=== PATIENT | male | born 1955 | race African-American/Black ===

== ENCOUNTER 2022-01-08 06:40 | Emergency (ER) | payer MEDICARE, SELFPAY ==
[2022-01-08] VITALS (14 sets, daily range): BP systolic 170–186; BP diastolic 77–89; PULSE 66–88; RESP 16–23; TEMP 36.4; O2SAT 93–100
--- NOTE | ~2022-01-08 | XR_ITS ---
EXAMINATION: XR chest 1V portable DATE: 01/08/2022 07:29 INDICATION: Cough TECHNIQUE: frontal view of the chest was obtained. COMPARISON: None FINDINGS: The lungs are clear with no focal airspace opacities, pulmonary edema, pleural effusion or pneumothor ax. The cardiomediastinal silhouette is normal. Distal right clavicle resection. IMPRESSION: 1. No acute cardiopulmonary disease. Reviewed, dictated and finalized at location A.
--- NOTE | 2022-01-08 06:46 | ECG_ITS ---
Measurements Intervals [place] Rate: 73 P: 62 ID: [id number] QRS: -27 QRSD: 91 T: 66 QT: 406 QTc: 448 Interpretive Statements SINUS RHYTHM VOLTAGE CRITERIA FOR LVH CANNOT RULE OUT SEPTAL INFARCT, AGE INDETERMINATE ABNORMAL ECG NO PREVIOUS ECG AVAILABLE FOR COMPARISON Electronically Signed On 01-08-2022 7:35:39 CDT by Gil Polanco D.O.
--- NOTE | 2022-01-08 07:13 | ED.SOB ---
HPI - SOB/Dyspnea General Chief Complaint: Shortness of Breath/Dyspnea Stated Complaint: SOB Time Seen by Provider: 01/08/22 07:01 Source: RN notes reviewed History of Present Illness HPI Narrative: Patient presents emergency department from home for shortness of breath. Patient symptoms began yesterday. States he has been having a mild feeling of shortness of breath states has been associate with cough this been nonproductive. He denies any fevers or chills rhinorrhea sore throat chest pain abdominal pain nausea vomiting or any other symptoms. Patient states he is an every day smoker denies a history of known COPD Related Data Home Medications Medication Instructions Recorded Confirmed amlodipine 10 mg tablet mg 01/08/22 ergocalciferol (vitamin D2) 1,250 01/08/22 mcg (50,000 unit) capsule olmesartan 40 tablet 01/08/22 mg-hydrochlorothiazide 25 mg tablet rosuvastatin 20 mg tablet mg 01/08/22 Allergies Allergy/AdvReac Type Severity Reaction Status Date / Time lisinopril Allergy Unknown Hives Verified 01/08/22 06:46 Review of Systems Review of Systems: Gen.: Denies fevers or chills ENT: Denies congestion Respiratory: See HPI CV: Denies chest pain or palpitations GI: Denies abdominal pain nausea, emesis or diarrhea Musculoskeletal: Denies back pain or muscle pain Neuro: Denies numbness, tingling, weakness or focal weakness Skin: Denies rash Except as documented, all other systems reviewed and negative [facility] Past Medical History Medical History (Updated 01/08/22 @ 09:50 by Néstor Borjas DO) Patient denies significant medical history Social History Social History Smoking status: Current every day smoker Second hand tobacco smoke exposure: Yes Alcohol intake: current Exam Narrative: APPEARANCE: No acute distress, nontoxic, resting in bed EYES: EOMI HEENT: Normocephalic, atraumatic, OMM RESPIRATORY: No respiratory distress mild wheezing in upper lung [place] no rhonchi rales CARDIOVASCULAR: Regular rate and rhythm without murmurs rubs or gallops. ABDOMINAL: Soft, nontender, nondistended, no rebound or guarding MUSCULOSKELETAl: Moves all extremities. No clubbing, cyanosis or edema. NEURO: Awake and alert. Following commands, speech normal, no focal deficits SKIN:: Warm, dry. No rashes lesions or abrasions PSYCHIATRIC: Normal affect/mood, Course Course Emergency Course: Patient states he is feeling much better following breathing treatment. Repeat lung exam clear to auscultation bilaterally Discussed with patient results of workup and diagnosis. Discussed need for follow-up with primary care, proper use of medication, and reasons to return to the emergency department. Patient understands and agrees to current treatment plan Vital Signs Vital signs: Vital Signs Temperature 97.6 F 01/08/22 06:42 Pulse Rate 82 01/08/22 06:42 Respiratory Rate 20 01/08/22 06:42 Blood Pressure 170/77 H 01/08/22 06:42 Pulse Oximetry 93 01/08/22 06:42 Oxygen Delivery Room Air 01/08/22 06:42 Temperature 97.6 F 01/08/22 06:42 Pulse Rate 66 01/08/22 09:29 Respiratory Rate 18 01/08/22 09:29 Blood Pressure 176/89 H 01/08/22 09:29 Pulse Oximetry 97 01/08/22 09:29 Oxygen Delivery Room Air 01/08/22 08:40 MDM - SOB/Dyspnea Lab Data Result diagrams: 01/08/22 07:08 01/08/22 07:08 Labs: Lab Results 01/08/22 01/08/22 01/08/22 Range/Units 07:08 07:08 07:08 WBC 10.0 (4.5-10.0) K/mm3 RBC 4.92 (4.6-6.20) M/mm3 Hgb 13.8 L (14.0-18.0) g/dL Hct 42.0 (42.0-52.0) % MCV 85.4 (80-100) fl MCH 28.0 (26-34) pg MCHC 32.9 (32-36) g/dl RDW 14.0 (11.5-14.5) % Plt Count 381 H (150-375) k/mm3 MPV 8.7 (7.4-10.4) fl Immature Gran % (Auto) 0.3 (0-0.5) % Neut % (Auto) 57.8 (45.5-73.1) % Lymph % (Auto) 26.1 (18.3-44.2) % [place] % (Aut
[2022-01-08 07:20] LABS: Basophils Absolute Auto 0.1 K/mm3 (0.0-0.1); Basophils Percent Auto 0.9 % (0.2-1.2); Eosinophils Absolute Auto 0.7 K/mm3 (0-0.3); Eosinophils Percent Auto 7.3 % (0-4.4); Hemoglobin 13.8 g/dL (14.0-18.0); Immature Granulocyte Absolute 0.03 K/mm3 (0.00-0.031); Immature Granulocyte Percent A 0.3 % (0-0.5); Lymphocytes Percent Auto 26.1 % (18.3-44.2); Mean Corpuscular HGB Conc 32.9 g/dl (32-36); Mean Corpuscular Volume 85.4 fl (80-100); Mean Platelet Volume 8.7 fl (7.4-10.4); Monocytes Absolute Auto 0.8 K/mm3 (0.1-0.6); Monocytes Percent Auto 7.6 % (2.6-8.5); Neutrophils Absolute Auto 5.8 K/mm3 (1.3-6.7); Neutrophils Percent Auto 57.8 % (45.5-73.1); Platelet Count Result 381 k/mm3 (150-375); Red Blood Count 4.92 M/mm3 (4.6-6.20)
[2022-01-08 07:28] LABS: Alanine Aminotransferase 15 U/L (6-50); Albumin Level 4.4 g/dL (3.5-5.1); Alkaline Phosphatase 112 U/L (38-126); Anion Gap 13 mmol/L (8-16); Aspartate Amino Transferase 26 U/L (17-59); Bilirubin,Total 0.3 mg/dL (0.2-1.3); Blood Urea Nitrogen 12 mg/dL (9-20); Calcium 8.7 mg/dL (8.4-10.2); Carbon Dioxide 25 mmol/L (22-30); Chloride 103 mmol/L (98-107); Estimated CRCL calculation 72 ml/min; Estimated Glomerular Filt Rate > 60; Glucose 128 mg/dL (65-110); Potassium 4.2 mmol/L (3.4-5.0); Sodium 141 mmol/L (137-145)
[2022-01-08] MEDS: ALBUTEROL SULFATE NEB 2.5 MG/3 ML INH 5 MG INHALATION (07:41)
[2022-01-08] MEDS: IPRATROPIUM BR 0.02% INH SOLN 0.5 MG/2.5 ML VIAL INHALATION (07:41)
[2022-01-08 07:56] LABS: NT Pro B Type Natriuretic Pept 125 pg/mL (5-100); Troponin I < 0.012 ng/mL (0.000-0.034)
[2022-01-08 08:13] LABS: Prothrombin Time 13.1 Seconds (11.1-14.7)
[2022-01-08 08:23] LABS: SARS-CoV-2 RNA PCR Negative
[2022-01-08 08:27] LABS: D Dimer 0.37 ug/mL (<0.48)
[2022-01-08] MEDS: predniSONE 20 MG TABLET 60 MG PO (09:44)
== END 2022-01-08 10:10 | disposition home or self-care (01) ==
PROVIDERS: Emergency Medicine; Emergency Provider Emergency Medicine
DX: J44.1 Chronic obstructive pulmonary disease with (acute) exacerbation (principal); Z20.822 Contact with and (suspected) exposure to COVID-19; F17.210 Nicotine dependence, cigarettes, uncomplicated
CPT/HCPCS: 36415; 71045; 80053; 83880; 84484; 85025; 85380; 85610; 85730; 93005; 94640; 99284; C9803; J7512; U0003; U0005

== ENCOUNTER 2022-08-14 07:55 | Emergency (ER) | payer MEDICARE, SELFPAY ==
[2022-08-14 08:01] VITALS: BP 144/76; PULSE 81; RESP 16; TEMP 36.7; O2SAT 97
--- NOTE | 2022-08-14 10:22 | ED.GENADULT ---
HPI - General Adult General Chief complaint: Urogenital-Male Stated complaint: fever/dark urine Time Seen by Provider: 08/14/22 09:45 History of Present Illness HPI narrative: 66-year-old male presented the emergency department for evaluation of a suspected urinary tract infection. Patient states he has had some low-grade fever at home intermittent since Monday. Patient states he has had some dark urine. Patient denies any pain with urination. Patient does report a prior history of urinary tract infection thought to be secondary to not drinking enough water. Patient denies any prior history of urinary retention. Related Data Home Medications Medication Instructions Recorded Confirmed amlodipine 10 mg tablet mg 01/08/22 ergocalciferol (vitamin D2) 1,250 01/08/22 mcg (50,000 unit) capsule olmesartan 40 tablet 01/08/22 mg-hydrochlorothiazide 25 mg tablet rosuvastatin 20 mg tablet mg 01/08/22 Allergies Allergy/AdvReac Type Severity Reaction Status Date / Time lisinopril Allergy Unknown Hives Verified 01/08/22 06:46 Review of Systems Review of Systems: All systems reviewed & are unremarkable except as noted in HPI and below PMFSH Past Medical History Medical History (Updated 08/14/22 @ 12:18 by Blaze Mathur MD) Patient denies significant medical history Social History Social History Smoking status: Current every day smoker Second hand tobacco smoke exposure: Yes Alcohol intake: current Exam Narrative: APPEARANCE: Well appearing, no pain, no distress, well-nourished. HEAD: normocephalic, atraumatic. EYES: PERRLA/EOMI, conjunctivae clear. NOSE: Normal no drainage NECK: Supple. No adenopathy, no masses. RESPIRATORY: Airway patent, respirations nonlabored. Clear to auscultation bilaterally, no rales, rhonchi, wheezing. CARDIOVASCULAR: Regular rate and rhythm without murmurs rubs or gallops. ABDOMINAL: Soft, nontender, nondistended, normal bowel sounds MUSCULOSKELETAL: Moves all extremities. Strength/ROM intact, No edema, No calf tenderness. NEURO: Alert. Cranial nerves II through XII intact. Grossly intact SKIN: Warm, dry. Normal Color Course Course Emergency Course: 66-year-old male with history of urinary tract infection presenting for evaluation of dark urine and subjective fever. Patient was afebrile with no significant leukocytosis. Patient's CMP is similar to his baseline. UA does have leukoesterase and white blood cells. Urine culture was ordered and patient was started on Keflex. COVID and influenza were negative. Bedside bladder scan showed no retained urine. Patient and family were updated on the results of the work-up and plan for treatment. Patient was encouraged of close follow-up with his primary care physician. All questions and concerns were addressed. Vital Signs Vital signs: Vital Signs Temperature 98.1 F 08/14/22 08:01 Pulse Rate 81 08/14/22 08:01 Respiratory Rate 16 08/14/22 08:01 Blood Pressure 144/76 H 08/14/22 08:01 Pulse Oximetry 97 08/14/22 08:01 Oxygen Delivery Room Air 08/14/22 08:01 Temperature 98.1 F 08/14/22 08:01 Pulse Rate 81 08/14/22 08:01 Respiratory Rate 16 08/14/22 08:01 Blood Pressure 144/76 H 08/14/22 08:01 Pulse Oximetry 97 08/14/22 08:01 Oxygen Delivery Room Air 08/14/22 08:01 Medical Decision Making Vital Signs Vital Signs: Vital Signs Temperature 98.1 F 08/14/22 08:01 Pulse Rate 81 08/14/22 08:01 Respiratory Rate 16 08/14/22 08:01 Blood Pressure 144/76 H 08/14/22 08:01 Pulse Oximetry 97 08/14/22 08:01 Oxygen Delivery Room Air 08/14/22 08:01 Temperature 98.1 F 08/14/22 08:01 Pulse Rate 81 08/14/22 08:01 Respiratory Rate 16 08/14/22 08:01 Blood Pressure 144/76 H 08/14/22 08:01 Pulse Oximetry 97 08/14/22 08:01 Oxygen Delivery Room Air 08/14/22 08:01 Lab Data Lab results reviewed: Andrei
[2022-08-14 10:28] LABS: Basophils Absolute Auto 0.1 K/mm3 (0.0-0.1); Basophils Percent Auto 0.8 % (0.2-1.2); Eosinophils Absolute Auto 0.2 K/mm3 (0-0.3); Eosinophils Percent Auto 2.3 % (0-4.4); Hematocrit 46.5 % (42.0-52.0); Hemoglobin 14.7 g/dL (14.0-18.0); Immature Granulocyte Absolute 0.06 K/mm3 (0.00-0.031); Immature Granulocyte Percent A 0.6 % (0-0.5); Lymphocytes Absolute Auto 2.57 K/mm3 (0.9-3.2); Lymphocytes Percent Auto 26.2 % (18.3-44.2); Mean Corpuscular HGB Conc 31.6 g/dl (32-36); Mean Corpuscular Hemoglobin 27.6 pg (26-34); Mean Corpuscular Volume 87.2 fl (80-100); Mean Platelet Volume 8.4 fl (7.4-10.4); Monocytes Absolute Auto 0.5 K/mm3 (0.1-0.6); Monocytes Percent Auto 5.4 % (2.6-8.5); Neutrophils Absolute Auto 6.3 K/mm3 (1.3-6.7); Neutrophils Percent Auto 64.7 % (45.5-73.1); Platelet Count Result 444 k/mm3 (150-375); Red Blood Count 5.33 M/mm3 (4.6-6.20); Red Cell Distribution Width 14.5 % (11.5-14.5); White Blood Count 9.8 K/mm3 (4.5-10.0)
[2022-08-14 10:33] LABS: Influenza A QL RT-PCR Negative (Negative); Influenza B QL RT-PCR Negative (Negative); SARS-CoV-2 RNA PCR Negative
[2022-08-14 10:38] LABS: Alanine Aminotransferase 18 U/L (6-50); Albumin Level 4.6 g/dL (3.5-5.1); Alkaline Phosphatase 107 U/L (38-126); Anion Gap 8 mmol/L (8-16); Aspartate Amino Transferase 22 U/L (17-59); Bilirubin,Total 0.6 mg/dL (0.2-1.3); Blood Urea Nitrogen 12 mg/dL (9-20); Calcium 9.5 mg/dL (8.4-10.2); Carbon Dioxide 25 mmol/L (22-30); Chloride 107 mmol/L (98-107); Estimated CRCL calculation 81 ml/min; Estimated Glomerular Filt Rate > 60; Glucose 145 mg/dL (65-110); Potassium 4.2 mmol/L (3.4-5.0); Sodium 140 mmol/L (137-145)
[2022-08-14 10:55] LABS: Appearance Urine Clear (Clear); Bacteria Urine None Seen /hpf; Bilirubin Urine Negative (Negative); Blood Urine Negative (Negative); Color Urine Yellow (Yellow); Glucose Urine UA Negative (Negative); Ketones Urine Negative (Negative); Leukocyte Esterase Ur 1+ LEU/UL (Negative); Nitrate Urine Negative (Negative); Non Pathogenic Casts 0-2; Protein Urine Negative (Negative); RBC Urine 0-2 /hpf (0-2); Specific Grav Ur 1.009 (1.001-1.035); Squamous Epithelial Cell Urine None seen /hpf (Few); Urobilinogen Urine 0.2 mg/dL (<2.0)
[2022-08-14 10:59] LABS: Add Urine Microscopic? YES
== END 2022-08-14 12:30 | disposition home or self-care (01) ==
PROVIDERS: Physician Assistant; Emergency Provider Emergency Medicine
DX: N39.0 Urinary tract infection, site not specified (principal); Z79.51 Long term (current) use of inhaled steroids; Z20.822 Contact with and (suspected) exposure to COVID-19
CPT/HCPCS: 36415; 80053; 81001; 85025; 87086; 87636; 99283

== ENCOUNTER 2022-09-17 05:03 | Emergency (ER) | payer MEDICARE, SELFPAY ==
[2022-09-17 05:13] VITALS: BP 170/75; PULSE 82; RESP 16; TEMP 36.9; O2SAT 97
[2022-09-17 05:17] VITALS: BP 136/78; PULSE 80; RESP 16; TEMP 37; O2SAT 98
--- NOTE | 2022-09-17 05:36 | ED.GENADULT ---
HPI - General Adult General Chief complaint: Unspecified Stated complaint: I don't think my brain is getting enough O2. Time Seen by Provider: 09/17/22 05:32 History of Present Illness HPI narrative: This is a 66-year-old male presenting to ED after he woke up from sleep gasping for breath. The patient felt like he was awake but not breathing. And then he was able to take a breath. At this time he has no complaints. His does want to find a new primary care physician as they are unhappy with her current doctor. They are requesting a referral. Related Data Home Medications Medication Instructions Recorded Confirmed amlodipine 10 mg tablet mg 01/08/22 ergocalciferol (vitamin D2) 1,250 01/08/22 mcg (50,000 unit) capsule olmesartan 40 tablet 01/08/22 mg-hydrochlorothiazide 25 mg tablet rosuvastatin 20 mg tablet mg 01/08/22 Allergies Allergy/AdvReac Type Severity Reaction Status Date / Time lisinopril Allergy Unknown Hives Verified 09/17/22 05:05 [facility] Past Medical History Medical History Hypertension Patient denies significant medical history Social History Social History Smoking status: Current every day smoker Second hand tobacco smoke exposure: Yes Alcohol intake: current Exam Narrative: APPEARANCE: No apparent distress. pleasant/polite during the interview Head: atraumatic. EYES: EOMI, NOSE: Atraumatic NECK: Trachea midline RESPIRATORY: No increased rate of breathing , clear to auscultation CARDIOVASCULAR: RRR, no peripheral edema ABDOMINAL: Non-distended MUSCULOSKELETAl: No obvious deformities NEURO: Alert. Moving 4/4 extremities SKIN:: Warm, dry. Normal color PSYCHIATRIC: Normal affect Course Vital Signs Vital signs: Vital Signs Temperature 98.5 F 09/17/22 05:13 Pulse Rate 82 09/17/22 05:13 Respiratory Rate 16 09/17/22 05:13 Blood Pressure 170/75 H 09/17/22 05:13 Pulse Oximetry 97 09/17/22 05:13 Oxygen Delivery Room Air 09/17/22 05:13 Temperature 98.6 F 09/17/22 05:17 Pulse Rate 80 09/17/22 05:17 Respiratory Rate 16 05/13/23 05:17 Blood Pressure 136/78 09/17/22 05:17 Pulse Oximetry 98 09/17/22 05:17 Oxygen Delivery Room Air 09/17/22 05:17 Medical Decision Making MDM Narrative Medical decision making narrative: -Presentation: 66-year-old male presenting with complaint that he was unable to breathe while sleeping. This resolved after he woke up. 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 Lives with his Trell -External Chart Review: previous ER notes -Hx from independent Sources: bedside -Discussion of Management/Consultants: none -Independent interpretation of studies: none Dx tests considered but not ordered: none -Procedures: none -Interventions: none -Shared decision making / Disposition: patient got very anxious after he was awoken from sleep. At this time he is feeling much better in and is asymptomatic. He and his would like a referral to a primary care physician which will be provided. -RX Vital Signs Vital Signs: Vital Signs Temperature 98.5 F 09/17/22 05:13 Pulse Rate 82 09/17/22 05:13 Respiratory Rate 16 09/17/22 05:13 Blood Pressure 170/75 H 09/17/22 05:13 Pulse Oximetry 97 09/17/22 05:13 Oxygen Delivery Room Air 09/17/22 05:13 Temperature 98.6 F 09/17/22 05:17 Pulse Rate 80 09/17/22 05:17 Respiratory Rate 16 09/17/22 05:17 Blood Pressure 136/78 09/17/22 05:17 Pulse Oximetry 98 09/17/22 05:17 Oxygen Delivery Room Air 09/17/22 05:17 Discharge Plan Discharge Clinical Impression: Obstructive sleep apnea Patient Disposition: Home, Self-Car
[2022-09-17 06:02] VITALS: BP 106/88; PULSE 76; RESP 14; O2SAT 100
== END 2022-09-17 06:03 | disposition home or self-care (01) ==
PROVIDERS: Emergency Provider Emergency Medicine
DX: G47.33 Obstructive sleep apnea (adult) (pediatric) (principal); I10 Essential (primary) hypertension; F17.200 Nicotine dependence, unspecified, uncomplicated
CPT/HCPCS: 99281